=== PATIENT | female | born 1945 | race Caucasian/White ===

== ENCOUNTER 2018-06-13 10:31 | Outpatient (CLI) | payer MEDICARE, OTHER ==
--- NOTE | 2018-06-13 12:28 | RAD ---
PA AND LATERAL OF THE CHEST: INDICATION: Chronic cough. COMPARISON: None. FINDINGS: The lungs are mildly hyperinflated but clear. There are suspected calcified lymph nodes seen within the right infrahilar region. No confluent airspace [id number] or pleural effusion is evident. There i s mild thoracic scoliosis. IMPRESSION: 1. No definite acute cardiopulmonary abnormality. 2. Findings suspicious for prior granulomatous disease. POS: CET
== END 2018-06-13 10:32 | disposition home or self-care (01) ==
LOC: BICRAD 10:31
PROVIDERS: ATTEND Family Medicine
DX: R05 Cough (principal)
CPT/HCPCS: 36415; 71046; 80053; 80061; 82306; 84439; 84443; 85025

== ENCOUNTER 2018-09-09 14:05 | Outpatient (CLI) | payer MEDICARE, OTHER | END 2018-09-09 14:06 | disposition home or self-care (01) | LOC: CP 14:05 | PROVIDERS: ATTEND Internal Medicine | DX: R06.00 Dyspnea, unspecified (principal); R05 Cough | CPT/HCPCS: 94060; 94727; 94729 ==

== ENCOUNTER 2018-10-06 15:00 | Outpatient (CLI) | payer MEDICARE, OTHER | END 2018-10-06 15:01 | disposition home or self-care (01) | LOC: SLEEPLAB 15:00 | PROVIDERS: ATTEND Internal Medicine | DX: G47.33 Obstructive sleep apnea (adult) (pediatric) (principal); R53.83 Other fatigue; R51 Headache; R06.83 Snoring; R35.1 Nocturia; I10 Essential (primary) hypertension; G47.10 Hypersomnia, unspecified | CPT/HCPCS: 95806 ==

== ENCOUNTER 2018-12-04 19:30 | Outpatient (CLI) | payer MEDICARE, OTHER | END 2018-12-04 19:31 | disposition home or self-care (01) | LOC: SLEEPLAB 19:30 | PROVIDERS: ATTEND Internal Medicine | DX: G47.33 Obstructive sleep apnea (adult) (pediatric) (principal); R09.89 Other specified symptoms and signs involving the circulatory and respiratory systems; R40.0 Somnolence; R06.89 Other abnormalities of breathing; R51 Headache; R35.1 Nocturia; I10 Essential (primary) hypertension | CPT/HCPCS: 95810 ==

== ENCOUNTER 2023-02-01 11:30 | Outpatient (CLI) | payer MEDICARE, OTHER | END 2023-02-01 11:31 | disposition home or self-care (01) | LOC: BICMRI 11:30 | PROVIDERS: ATTEND Family Medicine | DX: R51.9 Headache, unspecified (principal) | CPT/HCPCS: 70551 ==